=== PATIENT | male | born 1955 | race Caucasian/White ===

== ENCOUNTER → 2024-05-26 | Outpatient (CLI) | payer MEDICARE, OTHER, SELFPAY ==
[2024-05-26 09:58] LABS: Prostate Specific Antigen 0.91 ng/mL (0-4.00)
== END | disposition home or self-care (01) ==
LOC: COPL 08:33
PROVIDERS: PCP Family Medicine; Referring Provider Family Medicine; Visit Provider Family Medicine
DX: I10 Essential (primary) hypertension (principal); E11.9 Type 2 diabetes mellitus without complications; N40.1 Benign prostatic hyperplasia with lower urinary tract symptoms
CPT/HCPCS: 36415; 84153

== ENCOUNTER → 2024-10-09 | Outpatient (CLI) | payer MEDICARE, OTHER, SELFPAY ==
[2024-10-09 08:38] LABS: Glucose Estimated Average 123 mg/dL (80-131); Hemoglobin A1C 5.9 % Hgb (4.8-6.0)
== END | disposition home or self-care (01) ==
PROVIDERS: PCP Family Medicine; Referring Provider Family Medicine; Visit Provider Family Medicine
DX: I10 Essential (primary) hypertension (principal); R79.9 Abnormal finding of blood chemistry, unspecified
CPT/HCPCS: 36415; 83036

== ENCOUNTER 2025-04-18 09:53 | Emergency (ER) | payer MEDICARE, OTHER, SELFPAY ==
--- NOTE | 2025-04-18 09:59 | EDNOTE_ITS ---
ED Wound/Laceration-RME/HPI General Chief Complaint: Wound/Laceration Stated Complaint: HEMORRHAGE Time Seen by Provider: 04/18/25 09:58 Arrival date/time: 04/18/25 09:53 RME / HPI RME / HPI narrative: DR. TRUJILLO MAIN ED EVALUATION: 69-year-old male presents to the Emergency Department [facility] for continued bleeding from a right facial wound. The patient reports that he underwent a skin biopsy at a internet researcher?s office in [place] on . Earlier today, while cleaning the biopsy site, he noted oozing blood that would not stop. He denies pain, dizziness, or other symptoms. He is not on any blood thinners. EMS was called due to persistent bleeding. The patient attempted to return to the internet researcher?s office, but it was closed for the weekend. Past medical history of hypertension, appendectomy, and right shoulder surgery. Related Data Home Medications ?Medication ?Instructions ?Recorded ?Confirmed losartan 50 mg tablet 50 mg PO QDAY 10/02/2203/26 Previous Rx's ?Medication ?Instructions ?Recorded docusate sodium 100 mg capsule 100 mg PO BID #30 caps 03/27/24 (Colace) hydrocodone 5 mg-acetaminophen 325 1 tab PO Q6H PRN pa in (scale score 03/27/24 mg tablet 7-10) #10 tabs ibuprofen 600 mg tablet 600 mg PO Q8H PRN pain (scal e 03/27/24 score 4-6) #15 tabs Allergies Allergy/AdvReac Type Severity Reaction Status Date / Time No Known Allergies Allergy Verified 04/18/25 10:04 Review of Systems Review of Systems Systems Reviewed: All systems reviewed, normal except as documented Past Medical History Past Medical History CARDIAC: Positive Cardiac Disorders, Hypercholesterolemia and Hypertension GASTROINTESTINAL: Positive Gastrointestinal Disorders, Diverticulitis and Obesity GENITOURINARY: Positive Genitourinary Disorders and Kidney Stones ENDOCRINE: Positive Endocrine Disorders, Diabetes Mellitus Type 2 (DIET CONROL) and Hypothyroidism (levels normal no meds anymore) OTHER HISTORY: Positive Anesthesia Reactions (nausea) Family History FAMILY HISTORY: Positive Family Cardiac Disorders, Family Gastrointestinal Problems, Family Cancer (Mother with end stage liver disease secondary to Hep C) and Family Surgery Surgical History SURGICAL: Positive Tonsillectomy (1966) Social History SMOKING STATUS: Former smoker SUBSTANCE USE: does not use ALCOHOL: Never ED Exam Narrative Physical exam: GENERAL APPEARANCE: alert and oriented x 4, well-developed, well-nourished, no acute distress VITALS: All vitals were reviewed and the pulse ox is 96% on room air, which is normal according to my interpretation. HEENT: Normocephalic, atraumatic; pupils equal, round, reactive to light; EOMI; mucous membranes pink and moist; oropharynx clear; right facial region with a shallow 1.5 cm wound showing minimal punctate oozing of blood without surround ing erythema or swelling. NECK: Supple LUNGS: CTABL; no wheezes, no rales, no rhonchi HEART: Regular rate, regular rhythm; normal S1, S2; no murmurs ABDOMEN: non distended; normal BS; soft, no tenderness, no guarding, no rebound; no masses, no organomegaly, no hernia BACK: no CVA tenderness EXTREMITIES: atraumatic; no edema NEUROLOGIC: awake; alert and oriented x4; cranial nerves II-XII grossly intact; no focal sensory or motor deficits PSYCHIATRIC: appropriate mood and affect SKIN: warm, dry, normal color; no rashes Course Quality Measures none Orders Category Date Time Status Ferric Subsulfate Top Vera 8gm [Ferric Subsulfate Top Med 04/18/25 09:59 Discontinued Vera] See Dose Instructions TOP X1 ONE Silver Nitrate Applicators Med 04/18/25 09:58 Discontinued 1 appl TOP X1 ONE Vital Signs Vital signs: Vital Signs Temperature 97.8 F 04/18/25 10:03 Pulse Rate 67 04/18/25 10:03 Respiratory Rate 20 04/18/25 10:03 Blood Pressure 165/99 H 04/18/25 10:03 Pulse Oximetry (%) 96 04/18/25 10:03 Oxygen Delivery Method Room Air 04/18/25 10:03 Wound / Laceration MDM Narrative MDM Narrative:: I, Pamela Otto, am scribing for and in the presence of Dr. Trujillo. 1040: Applied silver nitrate to the wound. No complications, patient tolerated well. Patient data External records reviewed:: [facility] previous records and EMS form Clinical information provided by:: patient and EMS Social determinants that could affect healthcare access:: none Patient has the following chronic illnesses:: Past medical history of hypertension, appendectomy, and right shoulder surgery. Recent skin biopsy at a internet researcher?s office in [place] on . How is presenting disease/condition affected by chronic disease/condition?: exacerbated by Evaluation data The following diagnostics were reviewed and interpreted by me:: other (specify) (none) Lab and/or radiology exams considered but not ordered:: none Interpretation Summary: n/a Medications / Prescriptions Medications or Prescriptions considered but not ordered:: none Medication administrations:: Medication Administration History Discontinued Medications Ferric Subsulfate (Ferric Subsulfate Top Vera 8 Gm Btl) 0 gm TOP X1 ONE Stop: 04/18/25 10:00 Last Admin: 04/18/25 10:52 Dose: 8 gm Documented By: KATARINA Comments: ADMINISTERED BY DR TRUJILLO TO AFFECTED AREA Silver Nitrate (Silver Nitrate 1 Appl Ea) 1 appl TOP X1 ONE Stop: 04/18/25 09:59 Last Admin: 04/18/25 10:53 Dose: 1 appl Documented By: KATARINA Comments: ADMINISTERED BY DR TRUJILLO TO AFFECTED AREA see above Consultations Consultation(s) initiated? (list below): No Diagnosis Wound Differential Diagnosis: other (Post-biopsy wound bleeding, superficial capillary oozing, and local wound irritation.) Most likely diagnosis given after review of the tests above:: Bleeding from surgical wound Admission Indicated Admission indicated?: not indicated Admission Request Was there a request for admission?: No Disposition Plan Disposition Plan: Discharge Discharge Attestation Discharge Attestation: The patient and all family members were given an opportunity to ask questions and understood the discharge instructions. Discharge instructions specifically effects, indications for sooner follow up or return to the emergency department, and the expected course of current diagnosis. Patient condition: Stable Discharge Plan Plan Patient Disposition: HOME (Self Care) Prescriptions/Referrals Prescriptions/Med Rec: No Action docusate sodium [Colace] 100 mg capsule 100 mg PO BID Qty: 30 0RF ibuprofen 600 mg tablet 600 mg PO Q8H PRN (Reason: pain (scale score 4-6)) Qty: 15 0RF hydrocodone-acetaminophen 5-325 mg tablet 1 tab PO Q6H MDD 4 PRN (Reason: pain (scale score 7-10)) Qty: 10 0RF losartan 50 mg tablet 50 mg PO QDAY Patient Comments: TAKE 1 TABLET BY MOUTH EVERY DAY Referrals: Rylie Mariscal MD [Primary Care Provider, Family Practice] - In 1 week Problem List Clinical Impression: Bleeding from surgical wound Patient/Caregiver Discharge Instructions Education Materials: ED Post Op Wound Check, Bleeding Print Language: Andorran Stand Alone Forms: Michelle Award Info., Patient Portal Info Letter
[2025-04-18 10:01] VITALS: PULSE 92; RESP 16; BMI 31.1
[2025-04-18 10:03] VITALS: BP 165/99; PULSE 67; RESP 20; TEMP 36.6; O2SAT 96
--- NOTE | 2025-04-18 10:27 | PC.NURSE ---
PATIENT BIBA FROM HOME FOR BLEEDING TO HIS RECENT BIOPSY SITE ON RIGHT SIDE OF FACE NEAR NOSE. PATIENT HAD BASAL CELL CARCINOMA REMOVED ON SUNDAY AND WOKE UP TODAY WITH SITE BLEEDING WITHOUT BEING CONTROLLED. PATIENT VITALS ARE STABLE. PER DR. OGDEN PATIENT WILL NEED TO HAVE AREA CAUTERIZED
[2025-04-18] MEDS: SILVER NITRATE 1 APPL EA TOP (10:53)
[2025-04-18 11:10] VITALS: BP 150/99; PULSE 55; RESP 19; TEMP 36.9; O2SAT 95
== END 2025-04-18 11:52 | disposition home or self-care (01) ==
PROVIDERS: Emergency Provider Emergency Medicine; PCP Family Medicine
DX: T81.31XA Disruption of external operation (surgical) wound, not elsewhere classified, initial encounter (principal); I10 Essential (primary) hypertension
CPT/HCPCS: 99283; A9270